=== PATIENT | male | born 1975 | race Caucasian/White ===

== ENCOUNTER 2016-08-03 20:23 | Emergency (ER) | payer MEDICAID ==
[~2016-08-03] VITALS: Ht 175.3 cm; Wt 86.8 kg
[2016-08-03 23:38] VITALS: BP 124/73
== END 2016-08-04 00:08 | disposition home or self-care (01) ==
LOC: EMS 20:25
DX: Z00.8 Encounter for other general examination (principal)
CPT/HCPCS: 99281; 99283

== ENCOUNTER 2025-04-15 23:31 | Emergency (ER) | payer MEDICAID, OTHER ==
[~2025-04-15] VITALS: Ht 175.3 cm; Wt 111.4 kg
[2025-04-15 23:46] VITALS: TEMP 98.1
[2025-04-16 02:03] LABS: PLATELET COUNT (AUTO) 262 K/uL (150-450); RED BLOOD CELL COUNT(AUTO) 5.37 MIL/uL (4.50-5.90); RED CELL DISTRIBUTION WIDTH 15.2 % (11.5-14.5); WHITE BLOOD COUNT (AUTO) 8.7 K/uL (4.5-11.0)
[2025-04-16] MEDS: IBUPROFEN 600 MG TABLET PO ONE (02:09)
[2025-04-16] MEDS: ACETAMINOPHEN 500 MG TABLET PO ONE (02:09)
[2025-04-16 02:12] LABS: CALCIUM, TOTAL 9.1 mg/dL (8.8-10.5); CREATININE 1.56 mg/dL (0.60-1.30); GLOMERULAR FILTR. RATE CALC 48 mL/min (>60); GLUCOSE,RANDOM 107 mg/dL (70-110); SODIUM SERUM 138 mmol/L (136-145); UREA NITROGEN, BLOOD 11 mg/dL (7-18)
[2025-04-16 02:20] LABS: TROPONIN I-HIGH SENSITIVITY 5 ng/L (<76)
[2025-04-16 03:00] VITALS: BP 138/78; PULSE 72; RESP 16; O2SAT 97
== END 2025-04-16 03:23 ==
LOC: EMS 23:31
DX: S40.022A Contusion of left upper arm, initial encounter (principal); I10 Essential (primary) hypertension; W22.09XA Striking against other stationary object, initial encounter; Y93.89 Activity, other specified; Y92.89 Other specified places as the place of occurrence of the external cause; Y99.8 Other external cause status
CPT/HCPCS: 80048; 84484; 85025; 93005; 99285